=== PATIENT | female | born 1945 | race Caucasian/White ===

== ENCOUNTER 2022-09-15 06:58 | Day surgery (SDC) | payer BC, MEDICARE ==
[2022-09-07 10:41] VITALS: BMI 27.4
[2022-09-15] MEDS ORDERED: CEFAZOLIN 2 GM in DEXTROSE 5%-WATER - 50 ML IVPB ONE (07:12)
[2022-09-15] MEDS ORDERED: CELECOXIB 200 MG CAPSULE PO ONE (07:12)
[2022-09-15] MEDS ORDERED: TRANEXAMIC ACID 1000 MG/10 ML VIAL IVPUSH ONE (07:12)
[2022-09-15] MEDS ORDERED: BUPIVICAINE 0.25%/MORPH PF/KETOROLAC - 51ML DISP.SYRINGE IA ONE (07:12)
[2022-09-15] MEDS ORDERED: ceFAZolin SODIUM 1 GM VIAL ONE ×2 (07:25→09:44)
[2022-09-15] MEDS ORDERED: VANCOMYCIN 1,000 MG VIAL (RESTRICTED TO ID ONLY) ONE ×2 (07:25→09:44)
[2022-09-15] MEDS ORDERED: PROPOFOL 40 ML ONE (08:22)
[2022-09-15] MEDS ORDERED: MIDAZOLAM HCL 2 MG/2 ML SINGLE DOSE VIAL ONE ×2 (08:22→09:24)
[2022-09-15] MEDS ORDERED: BUPIVACAINE HCL/PF 0.5% (5MG/ML) 10 ML VIAL ONE (08:25)
[2022-09-15] MEDS ORDERED: BUPIVACAINE HCL/PF 0.5% (5 MG/ML) 30 ML VIAL IJ ONE (08:25)
[2022-09-15] MEDS ORDERED: BUPIVACAINE LIPOSOME/PF (EXPAREL) 266 MG/20 ML VIAL ONE (08:26)
[2022-09-15] MEDS ORDERED: DEXAMETHASONE SOD PHOSPHATE 4 MG/1 ML VIAL ONE (09:44)
[2022-09-15] MEDS ORDERED: SODIUM CHLORIDE 0.9% P/F 10 ML VIAL IJ ONE (09:44)
[2022-09-15] MEDS ORDERED: TRANEXAMIC ACID 1000 MG/10 ML VIAL ONE (09:44)
[2022-09-15] MEDS ORDERED: LACTATED RINGERS SOLUTION 1,000 ML IV SCH ×2 (09:45→11:30)
[2022-09-15] MEDS ORDERED: THROMBIN (BOVINE) 5,000 UNIT VIAL TP ONE (10:20)
[2022-09-15] MEDS ORDERED: ONDANSETRON 4 MG/2 ML VIAL IVPUSH PRN (11:25)
[2022-09-15] MEDS ORDERED: oxyCODONE HCL 5 MG TABLET PO PRN (11:25)
[2022-09-15] MEDS: KETOROLAC TROMETHAMINE 30 MG/1 ML VIAL IVPUSH SCH ×2 (11:44→18:30)
[2022-09-15] MEDS: ACETAMINOPHEN 1000 MG/100 ML BAG IVPB ONE (11:47)
[2022-09-15] MEDS: oxyCODONE HCL 5 MG TABLET PO PRN (15:26)
[2022-09-15] MEDS: CEFAZOLIN SODIUM 2 GM in DEXTROSE 5%-WATER 100 ML IVPB SCH (17:51)
[2022-09-15] MEDS: ACETAMINOPHEN 500 MG TABLET (FP) PO SCH (18:29)
[2022-09-15] MEDS: MULTIVITAMINS (DAILY MVI) TABLET (FP) PO SCH (19:49)
[2022-09-15] MEDS: SENNOSIDES/DOCUSATE COMBO (SENNA PLUS) TABLET (UD) PO SCH ×2 (19:49→21:26)
[2022-09-15] MEDS: PANTOPRAZOLE 40 MG TABLET PO SCH (19:49)
[2022-09-15] MEDS: ESCITALOPRAM OXALATE 10 MG TABLET PO SCH (19:49)
[2022-09-15] MEDS: oxyCODONE HCL 10 MG SUSTAINED ACTING TABLET PO SCH (21:26)
[2022-09-15] MEDS ORDERED: MELATONIN 5 MG TABLETS PO SCH (22:00)
[2022-09-15] MEDS ORDERED: ROSUVASTATIN CA 10 MG TABLET PO SCH (22:00)
[2022-09-16] MEDS: ACETAMINOPHEN 500 MG TABLET (FP) PO SCH ×3 (00:03→12:56)
[2022-09-16] MEDS: CEFAZOLIN SODIUM 2 GM in DEXTROSE 5%-WATER 100 ML IVPB SCH (01:03)
[2022-09-16 02:02] VITALS: RESP 18
[2022-09-16] MEDS: ONDANSETRON 4 MG/2 ML VIAL IVPUSH PRN ×2 (04:10→12:55)
[2022-09-16] MEDS: ACETAMINOPHEN 1000 MG/100 ML BAG IVPB ONE (05:16)
[2022-09-16] MEDS ORDERED: ASPIRIN/DIPYRIDAMOLE 25 MG/200 MG CAPSULE PO SCH (08:00)
[2022-09-16 08:19] LABS: HEMATOCRIT 34.1 % (32.4-45.2); HEMOGLOBIN 11.1 G/dL (10.7-15.3); MCH 30.6 pg (25.7-33.7); MCHC 32.4 g/dl (32.0-36.0); MEAN CELL VOLUME 94.1 fl (80-96); PLATELET COUNT 150.7 10^3/uL (134-434); RBC 3.62 10^6/uL (3.60-5.2); RDW 13.9 % (11.6-15.6); WHITE BLOOD COUNT 8.6 10^3/uL (4.0-10.8)
[2022-09-16] MEDS: ESCITALOPRAM OXALATE 10 MG TABLET PO SCH (09:30)
[2022-09-16] MEDS: PANTOPRAZOLE 40 MG TABLET PO SCH (09:30)
[2022-09-16] MEDS: oxyCODONE HCL 10 MG SUSTAINED ACTING TABLET PO SCH (09:31)
[2022-09-16] MEDS: SENNOSIDES/DOCUSATE COMBO (SENNA PLUS) TABLET (UD) PO SCH (09:31)
[2022-09-16] MEDS: MULTIVITAMINS (DAILY MVI) TABLET (FP) PO SCH (09:31)
[2022-09-16] MEDS: oxyCODONE HCL 5 MG TABLET PO PRN (12:56)
[2022-09-16 13:07] VITALS: BP 118/46; PULSE 66; TEMP 98.1
== END 2022-09-16 16:17 | disposition home health service (06) ==
LOC: FASUSAT 06:58 → FM/S 12:52 → FASUSAT 09-16 16:17
PROVIDERS: ATTEND Orthopaedic Surgery
PROC: 8E0Y0CZ Robotic Assisted Procedure of Lower Extremity, Open Approach (ICD-10-PCS; 2022-09-15)
PROC: 0SRD0JA Replacement of Left Knee Joint with Synthetic Substitute, Uncemented, Open Approach (ICD-10-PCS; principal; 2022-09-15 09:46)
DX: M17.12 Unilateral primary osteoarthritis, left knee (principal)
CPT/HCPCS: 20985; 27447; C1776; S2900; 36415; 73560-TC-LT-FY; 85027; 94760; 97010-GP; 97116-GP; 97162-GP; C1713